=== PATIENT | female | born 1940 | race Caucasian/White ===

== ENCOUNTER 2022-10-19 12:34 | Outpatient (RCR) | payer OTHER, MEDICAID, SELFPAY | END 2022-10-19 16:00 | disposition home or self-care (01) | LOC: HO.WCC 12:34 | PROVIDERS: PCP Internal Medicine; Visit Provider Surgery | DX: I70.234 Atherosclerosis of native arteries of right leg with ulceration of heel and midfoot (principal); L97.412 Non-pressure chronic ulcer of right heel and midfoot with fat layer exposed; I25.10 Atherosclerotic heart disease of native coronary artery without angina pectoris; Z86.73 Personal history of transient ischemic attack (TIA), and cerebral infarction without residual deficits | CPT/HCPCS: 99213 ==